=== PATIENT | male | born 1950 | race Caucasian/White ===

== ENCOUNTER 2017-02-09 05:36 | Emergency (ER) | payer OTHER ==
[2017-02-09 05:42] VITALS: BP 124/57; PULSE 70; TEMP 98; BMI 26.6
--- NOTE | 2017-02-09 05:50 | PDOC ---
History of Present Illness - General Chief Complaint: Pain, Acute Stated Complaint: FLANK PAIN Time Seen by Provider: 02/09/17 05:41 - History of Present Illness Initial Comments: 02/09/17 05:52 This 67-year-old man with a history of hypertension and hyperlipidemia presents with a few hour history of left flank pain. Patient was awakened by the pain at approximately 2 AM. It has been accompanied by mild nausea (no vomiting) but no other symptoms. Patient has not taken any medication for the pain. He denies change in bowel movements, dysuria/hematuria/urinary frequency. Patient had 2 previous, milder episodes of this kind of pain in the past month. First episode resolved after 24 hours, second after a short period of time. No previous history of urinary tract infection/renal stone/diverticulitis. He denies chest pain, shortness of breath, extremity edema or pain. Family history of pancreatic cancer(mother) and cardiac disease (father) Past History - Past Medical History Allergies/Adverse Reactions: Allergies Allergy/AdvReac Type Severity Reaction Status Date / Time No Known Allergies Allergy Unverified 02/09/17 05:38 Home Medications: Ambulatory Orders Atorvastatin Calcium [Lipitor] 10 mg PO DAILY 02/09/17 Hydrochlorothiazide [Hctz -] 12.5 mg PO DAILY 02/09/17 Ibuprofen [Motrin -] 400 mg PO QID PRN #28 tablet 02/09/17 Olmesartan Medoxomil [Benicar (Nf)] 20 mg PO DAILY 02/09/17 Oxycodone HCl/Acetaminophen [Percocet 5-325 mg Tablet -] 1 combo PO Q6H PRN #10 tablet MDD 4 02/09/17 Tamsulosin HCl [Flomax] 0.4 mg PO DAILY #10 capsule 02/09/17 Vitamin D - DAILY 02/09/17 Zantac DAILY 02/09/17 Review of Systems - Review of Systems Able to Perform ROS?: Yes Comments:: 12 point review of systems is negative except for what is noted in the history of present illness *Physical Exam - Physical Exam Comments: GENERAL: Adult male, alert and oriented 3, in no acute distress HEAD: Normal with no signs of trauma. EYES: PERRLA, EOMI, sclera anicteric, conjunctiva clear. ENT: Ears normal, nares patent, oropharynx clear without exudates. Dry mucous membranes. NECK: Normal range of motion, supple without lymphadenopathy, JVD, or masses. LUNGS: Breath sounds equal, clear to auscultation bilaterally. No wheezes, and no crackles. HEART:Regular rate and rhythm, normal S1 and S2 without murmur, rub or gallop. ABDOMEN:.normal bowel sounds. Minimal left lower quadrant/left flank tenderness. No guarding/ rebound.No masses No distention. EXTREMITIES: Normal range of motion, no edema. No clubbing or cyanosis. No erythema, or tenderness. NEUROLOGICAL: Cranial nerves II through XII grossly intact. Normal speech. No focal neurologic deficits. MUSCULOSKELETAL: Back non-tender to palpation, no CVA tenderness SKIN: Warm, Dry, normal turgor, no rashes or lesions noted. ED Treatment Course - LABORATORY CBC & Chemistry Diagram: 02/09/17 05:59 02/09/17 05:59 Medical Decision Making - Medical Decision Making This 67-year-old man presents with a few hour history of left flank/left lower quadrant pain; he has had a few milder self resolving episodes in the last month. Exam shows minimal tenderness in the area and no other abnormalities. Differential includes renal colic versus mild diverticulitis. Urinalysis as well as CBC and chemistry profile sent Meanwhile, 1 L of normal saline IV started and 30 mg Toradol IV given. 02/09/17 07:07 Case signed out to incoming physician at end of shift *DC/Admit/Observation/Transfer Diagnosis at time of Disposition: Kidney stone on left side - Discharge Dispostion Disposition: HOME Condition at time of disposition: Improved - Prescriptions Prescriptions: Tamsulosin HCl [Flomax] 0.4 mg PO DAILY #10 capsule Ibuprofen [Motrin -] 400 mg PO QID PRN #28 tablet PRN Reason: Pain Oxycodone HCl/Acetaminophen [Percocet 5-325 mg Tablet -] 1 combo PO Q6H PRN #10 tablet MDD 4 PRN Reason: Pain - Referrals Referrals: Cory Rizo MD [Staff Physician] - - Patient Instructions Printed Discharge Instructions: DI for Kidney Stones Additional Instructions: Return to the emergency department immediately with ANY new, persistent or worsening symptoms including severe pain, inability to tolerate oral intake, fever/chills, or any other concerns. Take the ibuprofen every 6 hours for the next 2 days. Take percocet if you have pain that is not treated with the motrin/ibuprofen. Beware that it may make you sleepy, so do not drive or do anything that would put you or others in danger. Take flomax daily. Stay well hydrated. You MUST call and follow up with your doctor and urology within 3 days for further evaluation of your symptoms. Your emergency department visit is not complete without a followup with your doctor for reevaluation. Results were discussed with you. Please make sure your doctor reviews the results of your emergency evaluation. Print Language: BENGALI
[2017-02-09] MEDS ORDERED: SODIUM CHLORIDE 1,000 ML IV STA (05:56)
[2017-02-09] MEDS ORDERED: KETOROLAC TROMETHAMINE 30 MG/1 ML VIAL IVPUSH ONE (05:56)
[2017-02-09 06:35] LABS: BASOPHIL 0.2 % (0-2.0); EOSINOPHIL 0.2 % (0-4.5); MCH 30.5 pg (25.7-33.7); MCHC 34.2 g/dl (32.0-35.9); MEAN CELL VOLUME 89.1 fl (80-96); MEAN PLT VOLUME 10.8 fl (7.5-11.1); NEUTROPHILS 88.4 % (42.8-82.8); PLATELET COUNT 142 K/MM3 (134-434); RDW 12.6 % (11.9-15.9); WHITE BLOOD COUNT 10.7 K/mm3 (4.0-10.0)
[2017-02-09 07:03] LABS: ALBUMIN 4.2 g/dl (3.4-5.0); ALK PHOS 69 U/L (45-117); ANION GAP 9 (8-16); BILIRUBIN,TOTAL 0.6 mg/dL (0.2-1.0); CALCIUM 9.3 mg/dL (8.5-10.1); CO2 28 mmol/L (21-32); CREATININE 1.3 mg/dL (0.7-1.3); GLUCOSE,RANDOM 133 mg/dL (74-106); SGOT/AST 27 U/L (15-37); SGPT/ALT 38 U/L (12-78)
--- NOTE | 2017-02-09 07:16 | PDOC ---
*Physical Exam - Vital Signs Last Vital Signs Temp Pulse Resp BP Pulse Ox 98 F 70 16 124/57 99 02/09/17 05:40 02/09/17 05:40 02/09/17 05:40 02/09/17 05:40 02/09/17 05:40 ED Treatment Course - LABORATORY CBC & Chemistry Diagram: 02/09/17 05:59 02/09/17 05:59 - ADDITIONAL ORDERS Additional order review: 02/09/17 05:59 RBC 4.43 MCV 89.1 MCHC 34.2 RDW 12.6 MPV 10.8 Neutrophils % 88.4 H Lymphocytes % 4.2 L Monocytes % 7.0 Eosinophils % 0.2 Basophils % 0.2 - Medications Given in the ED: ED Medications Discontinued Medications Generic Name Dose Route Start Last Admin Trade Name Freq PRN Reason Stop Dose Admin Sodium Chloride 1,000 mls @ 1,000 mls/hr 02/09/17 05:56 02/09/17 05:59 Normal Saline - IV 02/09/17 06:55 1,000 mls/hr ASDIR STA Administration Ketorolac Tromethamine 30 mg 02/09/17 05:56 02/09/17 06:02 Toradol Injection - IVPUSH 02/09/17 05:57 30 mg ONCE ONE Administration Medical Decision Making - Medical Decision Making 02/09/17 07:15 67y M hx of htn, hl, presents with L flank pain associated with mild nausea. Mild LLQ/Flank tenderness. Pt is awaiting labs, ua. Anticipate CT+ or CT- depending on urinalysis. Pt currently resting comfortably in stretcher s/p toradol and fluids. 02/09/17 09:23 ct noted for 7mm stone pt currently pain free will dc the pt with urology fu, percocet, motrin, flomax return precutions were discussed I discussed the physical exam findings, ancillary test results and final diagnoses with the patient. I answered all of the patient's questions. The patient was satisfied with the care received and felt comfortable with the discharge plan and treatment plan. The patient will call their primary care physician within 24 hours to arrange follow-up and will return to the Emergency Department with any new, persistent or worsening symptoms. *DC/Admit/Observation/Transfer Diagnosis at time of Disposition: Kidney stone on left side - Discharge Dispostion Disposition: HOME Condition at time of disposition: Improved Admit: No - Prescriptions Prescriptions: Tamsulosin HCl [Flomax] 0.4 mg PO DAILY #10 capsule Ibuprofen [Motrin -] 400 mg PO QID PRN #28 tablet PRN Reason: Pain Oxycodone HCl/Acetaminophen [Percocet 5-325 mg Tablet -] 1 combo PO Q6H PRN #10 tablet MDD 4 PRN Reason: Pain - Referrals Referrals: Cory Rizo MD [Staff Physician] - - Patient Instructions Printed Discharge Instructions: DI for Kidney Stones Additional Instructions: Return to the emergency department immediately with ANY new, persistent or worsening symptoms including severe pain, inability to tolerate oral intake, fever/chills, or any other concerns. Take the ibuprofen every 6 hours for the next 2 days. Take percocet if you have pain that is not treated with the motrin/ibuprofen. Beware that it may make you sleepy, so do not drive or do anything that would put you or others in danger. Take flomax daily. Stay well hydrated. You MUST call and follow up with your doctor and urology within 3 days for further evaluation of your symptoms. Your emergency department visit is not complete without a followup with your doctor for reevaluation. Results were discussed with you. Please make sure your doctor reviews the results of your emergency evaluation. Print Language: TAJIK
[2017-02-09 07:45] LABS: URINE APPEARANCE CLEAR; URINE COLOR YELLOW; URINE GLUCOSE (UA) NEGATIVE (NEGATIVE)
[2017-02-09 07:46] LABS: URINE BILIRUBIN NEGATIVE (NEGATIVE); URINE BLOOD 3 (NEGATIVE); URINE KETONE NEGATIVE (NEGATIVE); URINE LEUK ESTERASE NEGATIVE (NEGATIVE); URINE NITRITE NEGATIVE (NEGATIVE); URINE PROTEIN NEGATIVE (NEGATIVE); URINE UROBILINOGEN 0.2 E.U/dl (0.2-1.0)
[2017-02-09 07:47] LABS: URINE BACTERIA FEW /hpf (NEGATIVE); URINE HYALINE CAST 1 /lpf; URINE RBC 259 /hpf (0-3); URINE WBC 11 (3-5)
[2017-02-09 07:48] LABS: URINE MUCUS RARE
== END 2017-02-09 10:01 | disposition home or self-care (01) ==
LOC: FER 05:36
PROC: 3E0333Z Introduction of Anti-inflammatory into Peripheral Vein, Percutaneous Approach (ICD-10-PCS; principal; 2017-02-09)
PROC: 3E0337Z Introduction of Electrolytic and Water Balance Substance into Peripheral Vein, Percutaneous Approach (ICD-10-PCS; 2017-02-09)
DX: N20.0 Calculus of kidney (principal); I10 Essential (primary) hypertension; E78.5 Hyperlipidemia, unspecified
CPT/HCPCS: 36415; 74176-TC; 80053; 81003; 81015; 85025; 99283-25